=== PATIENT | female | born 1985 | race African-American/Black ===

== ENCOUNTER → 2020-11-17 | Outpatient (CLI) | payer OTHER ==
[~2020-11-17] MED LIST: FUROSEMIDE 20MG/2ML VIAL (J1940) As Ordered ONE
--- NOTE | 2020-11-17 12:37 | REP ---
INDICATION: HYDRONEPHROSIS. COMPARISON: None. TECHNIQUE/RADIOTRACER AND DOSE: Following the intravenous administration of 8.8 mCi technetium 99 M Mag 3, flow and function images are performed in the posterior projection. Delayed imaging is performed following the intravenous administration of 20 mg of Lasix. FINDINGS: There is a greater degree of perfusion of left kidney compared to the right. Renal function images show bilateral cortical uptake and excretion. No cortical defect is seen. There is a moderate left hydronephrosis. There is mild right hydronephrosis. Contrast is seen extending throughout both ureters. Split function is 57.4% on the left and 42.6% on the right. Time to peak is normal on the left at 2 minutes and slightly delayed on the right at 4 minutes. T1 half is normal on the left and 9.5 minutes. T1 half on the right could not be calculated as is in excess of 30 minutes. Renal function curve of the left kidney is relatively normal in appearance. Renal function curve for the right kidney demonstrates a plateau configuration. Following the intravenous administration of Lasix there is significantly decreased activity in both pelvocaliceal systems, with mild persistent dilatation on the left. After voiding there is minimal postvoid residual in the urinary bladder. IMPRESSION: Mild right hydronephrosis, moderate left hydronephrosis. Significantly decreased activity in both pelvocaliceal systems after Lasix administration indicates that there is no complete urinary tract obstruction bilaterally. There is mild persistent left hydronephrosis. <Electronically signed by Drew Jewell > 11/17/20 [id number]
== END ==
LOC: M RAD 09:51
PROVIDERS: ATTEND Physician Assistant
DX: N13.1 Hydronephrosis with ureteral stricture, not elsewhere classified (principal)
CPT/HCPCS: 78708; A9562; J1940

== ENCOUNTER → 2021-05-18 | Outpatient (CLI) | payer OTHER | LOC: M RAD 12:56 | PROVIDERS: ATTEND Physician Assistant | DX: N13.30 Unspecified hydronephrosis (principal) | CPT/HCPCS: 78708; A9562; J1940 ==

== ENCOUNTER → 2023-02-04 | Outpatient (REF) | payer OTHER | LOC: M LAB REF 20:16 | PROVIDERS: ATTEND Physician Assistant | DX: N30.01 Acute cystitis with hematuria (principal) ==

== ENCOUNTER → 2023-09-04 | Outpatient (CLI) | payer OTHER ==
[~2023-09-04] MED LIST changes: -FUROSEMIDE 20MG/2ML VIAL (J1940) As Ordered ONE; +FUROSEMIDE 20MG/2ML VIAL As Ordered ONE
== END ==
LOC: M RAD 08:12
PROVIDERS: ATTEND Physician Assistant
DX: N13.1 Hydronephrosis with ureteral stricture, not elsewhere classified (principal)
CPT/HCPCS: 78708; A9562; J1940

== ENCOUNTER → 2024-03-24 | Outpatient (CLI) | payer OTHER | LOC: M RAD 07:21 | PROVIDERS: ATTEND Physician Assistant | DX: M13.10 Monoarthritis, not elsewhere classified, unspecified site (principal) | CPT/HCPCS: 78708; A9562; J1940 ==

== ENCOUNTER → 2024-09-13 | Outpatient (CLI) | payer OTHER ==
[~2024-09-13] MED LIST changes: +FUROSEMIDE 20 MG/2 ML VIAL As Ordered ONE; -FUROSEMIDE 20MG/2ML VIAL As Ordered ONE
== END ==
LOC: M RAD 09:31
PROVIDERS: ATTEND Specialist
DX: N13.1 Hydronephrosis with ureteral stricture, not elsewhere classified (principal)
CPT/HCPCS: 78708; A9562; J1938